=== PATIENT | female | born 1975 | race African-American/Black ===

== ENCOUNTER 2020-04-06 19:48 | Emergency (ER) | payer OTHER ==
[2020-04-06 19:54] VITALS: BP 134/86; PULSE 85; TEMP 98; BMI 26.6
[2020-04-06] MEDS ORDERED: predniSONE 20 MG TABLET (UD) PO ONE (20:09)
[2020-04-06] MEDS ORDERED: diphenhydrAMINE HCL 50 MG CAPSULE PO ONE (20:09)
[2020-04-06] MEDS ORDERED: predniSONE 10 MG TABLET (UD) ONE (20:18)
[2020-04-06] MEDS ORDERED: diphenhydrAMINE HCL 25 MG CAPSULE (FP) PO ONE (20:19)
== END 2020-04-06 20:35 | disposition home or self-care (01) ==
LOC: FER 19:48
DX: L23.89 Allergic contact dermatitis due to other agents (principal)
CPT/HCPCS: 99283-25